=== PATIENT | male | born 1995 | race Caucasian/White ===

== ENCOUNTER 2017-09-09 15:52 | Inpatient (IN) | payer OTHER ==
[~2017-09-09] VITALS: Ht 188 cm; Wt 75.6 kg
[2017-09-09] MEDS ORDERED: SODIUM CHLORIDE 0.9% 500ML 500 ML IV STA (16:08)
--- NOTE | 2017-09-09 16:18 | EMERGENCY ROOM VISIT NOTE ---
History Report prepared by Duc: Elias Hatfield Under the Supervision of: Dr. Guille Kingsley M.D. First contact with patient: 16:02 Chief Complaint: SWELLING TO EXTREMITY Stated Complaint: SWELLING IN ABD AND GROIN History of Present Illness The patient is a 22 year old male who presents to the Emergency Room with complaints of worsening swelling and bloating in his abdominal area that began this morning. Patient has associated symptoms of swelling in his scrotum, testicles, and upper groin area. He adds that he has vomited once since the onset of the symptoms. He states he has no associated urinary or bowel issues. He denies having any previous trauma to the area, fevers, or chills. He denies a history of similar symptoms. He adds that eating does not worsen his symptoms. Patient states he went to Urgent Care prior to arrival and was referred to the ED. He denies any medication allergies. He states he is a student at [employer]. He adds that he drank alcohol last night but that he did not go to bed sick. He denies any other health problems. He states he has no history of liver or kidney problems. Pertinent family medical history includes an extensive cardiac history on his father's side. Source of History: patient Onset: This morning Position: abdomen Timing: worsening Associated Symptoms: + vomiting, No fevers, No chills, No urinary symptoms Note: Patient has swelling in his scrotum, testicles, and upper groin area. Review of Systems See HPI for pertinent positives & negatives. A total of 10 systems reviewed and were otherwise negative. Past Medical & Surgical Medical Problems: (1) Acute pelvic inflammatory disease No pertinent past medical history. Family History Cardiac disorder in father Social History Smoking Status: Never Smoker Occupation Status: [employer] student Current/Historical Medications No Active Prescriptions or Reported Meds Allergies Coded Allergies: No Known Allergies (Unverified , 09/09/17) Physical Exam Vital Signs Date Time Temp Pulse Resp B/P (MAP) Pulse Ox O2 Delivery O2 Flow Rate FiO2 09/09/17 22:28 70 16 122/66 98 Room Air 09/09/17 21:00 78 16 146/64 98 Room Air 09/09/17 19:13 77 20 148/77 98 Room Air 09/09/17 17:46 82 152/78 99 Room Air 09/09/17 15:58 36.7 81 20 98/66 96 Room Air Physical Exam GENERAL: Patient is in no acute distress. HEENT: No acute trauma, normocephalic atraumatic, mucous membranes moist, no nasal congestion, no scleral icterus. NECK: No stridor, no adenopathy, no meningismus, trachea is midline. LUNGS: Clear to auscultation bilaterally, no wheeze, no rhonchi, breath sounds equal. HEART: Without murmurs gallops or rubs, regular rate and rhythm. ABDOMEN: Soft, nontender, bowel sounds positive, no hernias, no peritonitis. GROIN: Edema to the lower pelvis soft tissue which extends down into the scrotum. Mild erythema to scrotum and scrotum sack. No tenderness or evidence of a hernia. Penis and penis shaft are unaffected. EXTREMITIES: No cyanosis or edema, full range of motion of all the joints without pain or difficulty, no signs for acute trauma. NEUROLOGIC: Oriented x 3, no acute motor or sensory deficits, no focal weakness. SKIN: No rash, no jaundice, no diaphoresis. Medical Decision & Procedures ER Provider Diagnostic Interpretation: Radiology results as stated below per my review and radiologist interpretation: TESTICULAR) SCROTUM-CONT HISTORY: Pain. Edema. swollen testicles COMPARISON: None. FINDINGS: Right testis: Maximum dimension 4.8 cm. Uniform internal architecture. Normal epididymis. Normal vascular flow. Left testis: Maximum dimension 4.8 cm. Normal vascular flow. Normal epididymis. Nonspecific scrotal wall edema. IMPRESSION: 1. Normal Ultrasound testis. 2. Moderate scrotal wall edema bilaterally. The above report was generated using voice recognition software. It may contain grammatical, syntax or spelling errors. Electronically signed by: Maged Encarnacion M.D. 09/09/2017 5:25 PM ABD/PELVIS IV AND ORAL CONT CT DOSE: 294.59 mGy.cm HISTORY: Pain poss bladder rupture--swollen pelvis and testicles TECHNIQUE: Multiaxial CT images of the abdomen and pelvis were performed following the use of intravenous and oral contrast. A dose lowering technique was utilized adhering to the principles of ALARA. COMPARISON STUDY: None. FINDINGS: Lung bases are clear. Liver enhances uniformly. Spleen is uniform. Pancreas is unremarkable. Kidneys negative for hydronephrosis. There is mild amount of perinephric as well as Paracolic gutter infiltrative and/or surrounding fluid-type change. The bowel pattern is nonobstructive but is consistent with that of a nonobstructive reactive ileus. There is no evidence for fracture luminal air. There is a moderate amount of free fluid within the pelvis. Origin is unclear. The proximal aspect of the appendix is identified of the tip is now well seen. There is edematous change at the level of the inguinal canals. The edematous change of the scrotum is most likely related to the complex fluid present. A well-defined drainable abscess or collection is not appreciated. IMPRESSION: 1. Nonspecific fluid/infiltrative change within the pelvis considered to be higher density than the simple fluid within the bladder. 2. Origin is unclear, although the possibility of reactive fluid secondary to a pelvic inflammatory process, versus fluid from a nonvisualized perforation must be considered. 3. A pelvic peritonitis type process is not excluded. 4. The bulk of the appendix appears to be normal although the extreme tip of the appendix is not confirmed diagnostically. 5. Generalized infiltrative changes of the inferior rectus regions and anterior pelvic wall/inguinal regions are noted. 6. This infiltrative process most likely also involves the scrotal wall, as was noted on the patient's prior scrotal ultrasound. The above report was generated using voice recognition software. It may contain grammatical, syntax or spelling errors. Electronically signed by: Maged Encarnacion M.D. 09/09/2017 8:12 PM Laboratory Results 09/09/17 16:25 Red Blood Count 5.53, Mean Corpuscular Volume 96.0, Mean Corpuscular Hemoglobin 34.2, Mean Corpuscular Hemoglobin Concent 35.6, Mean Platelet Volume 9.9, Neutrophils (%) (Auto) 73.7, Lymphocytes (%) (Auto) 17.7, Monocytes (%) (Auto) 8.0, Eosinophils (%) (Auto) 0.2, Basophils (%) (Auto) 0.1, Neutrophils # (Auto) 8.96, Lymphocytes # (Auto) 2.15, Monocytes # (Auto) 0.97, Eosinophils # (Auto) 0.02, Basophils # (Auto) 0.01 09/09/17 16:25 Test 09/09/17 16:25 White Blood Count 12.15 K/uL (4.8-10.8) Red Blood Count 5.53 M/uL (4.7-6.1) Hemoglobin 18.9 g/dL (14.0-18.0) Hematocrit 53.1 % (42-52) Mean Corpuscular Volume 96.0 fL (80-100) Mean Corpuscular Hemoglobin 34.2 pg (25-34) Mean Corpuscular Hemoglobin Concent 35.6 g/dl (32-36) Platelet Count 206 K/uL (130-400) Mean Platelet Volume 9.9 fL (7.4-10.4) Neutrophils (%) (Auto) 73.7 % Lymphocytes (%) (Auto) 17.7 % Monocytes (%) (Auto) 8.0 % Eosinophils (%) (Auto) 0.2 % Basophils (%) (Auto) 0.1 % Neutrophils # (Auto) 8.96 K/uL (1.4-6.5) Lymphocytes # (Auto) 2.15 K/uL (1.2-3.4) Monocytes # (Auto) 0.97 K/uL (0.11-0.59) Eosinophils # (Auto) 0.02 K/uL (0-0.5) Basophils # (Auto) 0.01 K/uL (0-0.2) RDW Standard Deviation 42.4 fL (36.4-46.3) RDW Coefficient of Variation 12.2 % (11.5-14.5) Immature Granulocyte % (Auto) 0.3 % Immature Granulocyte # (Auto) 0.04 K/uL (0.00-0.02) Prothrombin Time 11.2 SECONDS (9.0-12.0) Prothromb Time International Ratio 1.1 (0.9-1.1) Activated Partial Thromboplast Time 22.6 SECONDS (21.0-31.0) Partial Thromboplastin Ratio 0.9 Urine Color DK YELLOW Urine Appearance CLEAR (CLEAR) Urine pH 5.5 (4.5-7.5) Urine Specific Somis 1.031 (1.000-1.030) Urine Protein NEG (NEG) Urine Glucose (UA) NEG (NEG) Urine Ketones TRACE (NEG) Urine Occult Blood TRACE (NEG) Urine Nitrite NEG (NEG) Urine Bilirubin NEG (NEG) Urine Urobilinogen NEG (NEG) Urine Leukocyte Esterase NEG (NEG) Urine WBC (Auto) 1-5 /hpf (0-5) Urine RBC (Auto) 0-4 /hpf (0-4) Urine Hyaline Casts (Auto) 1-5 /lpf (0-5) Urine Epithelial Cells (Auto) 5-10 /lpf (0-5) Urine Bacteria (Auto) NEG (NEG) Anion Gap 7.0 mmol/L (3-11) Est Creatinine Clear Calc Drug Dose 131.8 ml/min Estimated GFR () 132.9 Estimated GFR (Non- 114.6 BUN/Creatinine Ratio 13.4 (10-20) Calcium Level 9.8 mg/dl (8.5-10.1) Total Bilirubin 2.0 mg/dl (0.2-1) Aspartate Amino Transf (AST/SGOT) 564 U/L (15-37) Alanine Aminotransferase (ALT/SGPT) 244 U/L (12-78) Alkaline Phosphatase 76 U/L (45-117) Total Protein 7.9 gm/dl (6.4-8.2) Albumin 4.6 gm/dl (3.4-5.0) Globulin 3.3 gm/dl (2.5-4.0) Albumin/Globulin Ratio 1.4 (0.9-2) Thyroid Stimulating Hormone (TSH) 1.830 uIu/ml (0.300-4.500) Hepatitis B Surface Antigen NEG (NEG) Hepatitis C Antibody NEG (NEG) Monoscreen NEG (NEG) Laboratory results reviewed by me. Medications Administered Medications (Trade) Dose Ordered Sig/Malinda Route Start Time Stop Time Status Last Admin Dose Admin Sodium Chloride 500 ml @ 999 mls/hr Q31M STAT IV 09/09/17 16:08 09/09/17 16:38 DC 09/09/17 16:08 999 MLS/HR Cefepime HCl 2000 mg/Dextrose 112.5 ml @ 200 mls/hr ONE STAT IV 09/09/17 20:31 09/09/17 21:04 DC 09/09/17 21:33 200 MLS/HR ED Course 1605: The patient was evaluated in room A2. A complete history and physical exam was performed. 1608: Sodium Chloride 500 ml @ 999 mls/hr IV 2000: Ioversol 116ml IV 2030: Cefepime HCl 2000mg/Dextrose 112.5ml @ 200 mls/hr IV 2: I reassessed the patient and updated him on his results. 2049: Upon reexamination the patient will be further evaluated. I discussed results and treatment plan with the patient. He verbalizes agreement and understanding. I spoke with Dr. Brito of the [facility]. We discussed the patient's results and findings. The patient will be evaluated by Dr. Brito for further management. Medical Decision Differential Diagnosis: Trauma, bladder or urethral injury, renal failure, fluid overload, UTI, electrolyte abnormality, and infection There is a mild leukocytosis which could be consistent with infection or the stress of the situation. No anemia. No significant electrolyte abnormality or kidney failure. There are some elevations to the liver enzymes, the etiology for this finding is unclear. [place] testing is negative. Hepatitis testing so far is negative. Urinalysis does not show infection or significant hematuria. Testicular ultrasound shows normal testicles. There was scrotal edema seen. Abdominal and pelvis CT shows potential pelvic inflammation/infection. No abscess seen. The appendix appeared healthy. The patient presents with pelvis and scrotal swelling. The etiology is unclear. I am concerned about the possibility of infection given the white count elevation and the findings on CT. I discussed the case with the on-call surgeon, I talked with the on-call urologist. IV antibiotics for now was all that was recommended. No acute surgical or urologic intervention needed. I did speak to the patient and the mother. I spoke with case management. The on- call hospitalist was consulted. The patient did receive IV saline, he was given IV cefepime as antibiotic coverage. Medication Reconcilliation Current Medication List: was personally reviewed by me Blood Pressure Screening Patient's blood pressure: Elevated blood pressure Blood pressure disposition: Elevated BP felt to be situational Consults Time Called: 2027 Consulting Physician: Dr. Naveen Osullivan [facility] Returned Call: [address] Hodge who stated he did not believe any surgical procedure was necessary right now. He recommended the patient stay in the hospital and be given IV antibiotics. Additional Consults: Time Called: 2039 Consulted Physician: Dr. Alisha Osullivan [facility] Returned Call: 2040 Additional Comments: Discussed the patient's case. The patient will be evaluated for further management. Time Called: 2042 Consulted Physician: Dr. Jc Osullivan [facility] Returned Call: 2047 Additional Comments: Discussed the patient's case. The patient will be evaluated for further management. Impression Primary Impression: Pelvic pain Additional Impressions: Scrotal edema Leukocytosis Scribe Attestation The scribe's documentation has been prepared under my direction and personally reviewed by me in its entirety. I confirm that the note above accurately reflects all work, treatment, procedures, and medical decision making performed by me. Departure Information Dispostion Being Evaluated By Hospitalist Prescriptions No Active Prescriptions or Reported Meds Forms HOME CARE DOCUMENTATION FORM, IMPORTANT VISIT INFORMATION, WORK / SCHOOL INSTRUCTIONS Patient Instructions My [facility] Health Problem Qualifiers
[2017-09-09 16:44] LABS: BASO % 0.1 %; BASO ABS # 0.01 K/uL (0-0.2); EOS % 0.2 %; EOS ABS # 0.02 K/uL (0-0.5); HEMATOCRIT 53.1 % (42-52); HEMOGLOBIN 18.9 g/dL (14.0-18.0); IG# 0.04 K/uL (0.00-0.02); LYMPH % 17.7 %; LYMPH ABS # 2.15 K/uL (1.2-3.4); MEAN CORPUSCULAR HEMOGLOBIN 34.2 pg (25-34); MEAN CORPUSCULAR HGB CONC 35.6 g/dl (32-36); MEAN PLATELET VOLUME 9.9 fL (7.4-10.4); MONO ABS # 0.97 K/uL (0.11-0.59); NEUT % 73.7 %; NEUT ABS # 8.96 K/uL (1.4-6.5); PLATELET COUNT 206 K/uL (130-400); RED CELL DISTRIBUTION WIDTH CV 12.2 % (11.5-14.5); RED CELL DISTRIBUTION WIDTH SD 42.4 fL (36.4-46.3); WHITE BLOOD COUNT 12.15 K/uL (4.8-10.8)
[2017-09-09 17:02] LABS: ALBUMIN 4.6 gm/dl (3.4-5.0); CALCIUM 9.8 mg/dl (8.5-10.1); CREATININE 0.94 mg/dl (0.60-1.40); POTASSIUM 4.1 mmol/L (3.5-5.1)
[2017-09-09 17:11] LABS: INR 1.1 (0.9-1.1); PTT PATIENT 22.6 SECONDS (21.0-31.0)
[2017-09-09 17:13] LABS: TOTAL PROTEIN 7.9 gm/dl (6.4-8.2)
--- NOTE | 2017-09-09 17:27 | DIAGNOSTIC IMAGING REPORT ---
(TESTICULAR) SCROTUM-CONT HISTORY: Pain. Edema. swollen testicles COMPARISON: None. FINDINGS: Right testis: Maximum dimension 4.8 cm. Uniform internal architecture. Normal epididymis. Normal vascular flow. Left testis: Maximum dimension 4.8 cm. Normal vascular flow. Normal epididymis. Nonspecific scrotal wall edema. IMPRESSION: 1. Normal Ultrasound testis. 2. Moderate scrotal wall edema bilaterally. The above report was generated using voice recognition software. It may contain grammatical, syntax or spelling errors. Electronically signed by: Maged Encarnacion M.D. 09/09/2017 5:25 PM Dictated Date/Time: 09/09/2017 5:25 PM
[2017-09-09] MEDS ORDERED: OPTIRAY 320 IV PRN (20:00)
[2017-09-09 20:12] LABS: HEP C IGG 13 YRS+OLDER_RFLX NEG (NEG)
--- NOTE | 2017-09-09 20:13 | DIAGNOSTIC IMAGING REPORT ---
ABD/PELVIS IV AND ORAL CONT CT DOSE: 294.59 mGy.cm HISTORY: Pain poss bladder rupture--swollen pelvis and testicles TECHNIQUE: Multiaxial CT images of the abdomen and pelvis were performed following the use of intravenous and oral contrast. A dose lowering technique was utilized adhering to the principles of ALARA. COMPARISON STUDY: None. FINDINGS: Lung bases are clear. Liver enhances uniformly. Spleen is uniform. Pancreas is unremarkable. Kidneys negative for hydronephrosis. There is mild amount of perinephric as well as Paracolic gutter infiltrative and/or surrounding fluid-type change. The bowel pattern is nonobstructive but is consistent with that of a nonobstructive reactive ileus. There is no evidence for fracture luminal air. There is a moderate amount of free fluid within the pelvis. Origin is unclear. The proximal aspect of the appendix is identified of the tip is now well seen. There is edematous change at the level of the inguinal canals. The edematous change of the scrotum is most likely related to the complex fluid present. A well-defined drainable abscess or collection is not appreciated. IMPRESSION: 1. Nonspecific fluid/infiltrative change within the pelvis considered to be higher density than the simple fluid within the bladder. 2. Origin is unclear, although the possibility of reactive fluid secondary to a pelvic inflammatory process, versus fluid from a nonvisualized perforation must be considered. 3. A pelvic peritonitis type process is not excluded. 4. The bulk of the appendix appears to be normal although the extreme tip of the appendix is not confirmed diagnostically. 5. Generalized infiltrative changes of the inferior rectus regions and anterior pelvic wall/inguinal regions are noted. 6. This infiltrative process most likely also involves the scrotal wall, as was noted on the patient's prior scrotal ultrasound. The above report was generated using voice recognition software. It may contain grammatical, syntax or spelling errors. Electronically signed by: Maged Encarnacion M.D. 09/09/2017 8:12 PM Dictated Date/Time: 09/09/2017 8:01 PM
[2017-09-09] MEDS ORDERED: CEFEPIME IV 2,000 MG in DEXTROSE 5% 100ML 100 ML IV STA (20:31)
--- NOTE | 2017-09-09 22:06 | History and Physical ---
History & Physical Date & Time of Service: Sep 09, 2017 at 22:05 Chief Complaint: Swelling In Abd And Groin Primary Care Physician: [facility] History of Present Illness Source: patient, hospital records Patient woke up this morning and noted abdominal swelling. He had vomited (no hematemesis) earlier in the morning, secondary to alcohol consumption the night prior, but denied nausea upon waking or further episodes of vomiting. He was not experiencing any abdominal pain. No changes in bowel habits, has last BM around 2pm was normal without blood, He was able to tolerate breakfast without acute worsening of bloating, but did note progressively worsening bloating through out the day. Around mid day, he noticed scrotal and mons pubis swelling to over double his baseline size. Again, he did not experience pain with this. He denies UTI symptoms, abnormal discharge, or genital rashes. He does not recall any recent abdominal or genital trauma. Though he had unprotected sexual encounter with a previous partner on Monday, he did not engage in any sexual interactions since. He states he is heterosexual and has no history of STIs. No fevers, chills, sweats. No CP or SOB. No pain with ambulation, walking, stairs. No recent travel. No previous similar symptoms. No personal or family history of liver, kidney or colon issues. Past Medical/Surgical History No chronic health issues Family History Cardiac disorder in father Father had acute [place] and CABG in his 50s Social History Smoking Status: Never Smoker Smokeless Tobacco Use: No Alcohol Use: Beer daily after class Drug Use: marijuana (2 joints weekly) Marital Status: single Housing status: lives with roommate Occupational Status: [employer] student Immunizations History of Influenza Vaccine: No History of Tetanus Vaccine?: Yes History of Pneumococcal: No History of Hepatitis B Vaccine: Yes Multi-Drug Resistant Organisms History of MDRO: No Allergies Coded Allergies: No Known Allergies (Unverified , 09/09/17) Home Medications No Active Prescriptions or Reported Meds Review of Systems ROS is unremarkable except as noted above. Physical Exam Vital Signs Date Time Temp Pulse Resp B/P (MAP) Pulse Ox O2 Delivery O2 Flow Rate FiO2 09/09/17 21:00 78 16 146/64 98 Room Air 09/09/17 19:13 77 20 148/77 98 Room Air 09/09/17 17:46 82 152/78 99 Room Air 09/09/17 15:58 36.7 81 20 98/66 96 Room Air General Appearance: WD/WN, no apparent distress Head: normocephalic, atraumatic Eyes: normal inspection ENT: hearing grossly normal, pharynx normal Neck: supple, no adenopathy Respiratory/Chest: lungs clear, normal breath sounds, no respiratory distress, no accessory muscle use Cardiovascular: regular rate, rhythm, no murmur, normal peripheral pulses Abdomen/GI: normal bowel sounds, soft, + tenderness (RLQ), + distended ( minimally), + pertinent finding (positive psoas sign) Genitourinary - Male: normal phallus, normal testicles, + pertinent finding ( scrotal edema and erythema of skin. ) Back: normal inspection, no CVA tenderness Extremities/Musculoskelatal: no calf tenderness, no pedal edema Neurologic/Psych: alert, normal mood/affect, oriented x 3 Skin: normal color, + pertinent finding (patchy erythema over abdomen and scrotum. Not excessively hot to touch. Not well demarcated.) Lymphatic: no adenopathy Diagnostics Laboratory Results Results Past 24 Hours Test 09/09/17 16:25 Range/Units White Blood Count 12.15 4.8-10.8 K/uL Red Blood Count 5.53 4.7-6.1 M/uL Hemoglobin 18.9 14.0-18.0 g/dL Hematocrit 53.1 42-52 % Mean Corpuscular Volume 96.0 80-100 fL Mean Corpuscular Hemoglobin 34.2 25-34 pg Mean Corpuscular Hemoglobin Concent 35.6 32-36 g/dl Platelet Count 206 130-400 K/uL Mean Platelet Volume 9.9 7.4-10.4 fL Neutrophils (%) (Auto) 73.7 % Lymphocytes (%) (Auto) 17.7 % Monocytes (%) (Auto) 8.0 % Eosinophils (%) (Auto) 0.2 % Basophils (%) (Auto) 0.1 % Neutrophils # (Auto) 8.96 1.4-6.5 K/uL Lymphocytes # (Auto) 2.15 1.2-3.4 K/uL Monocytes # (Auto) 0.97 0.11-0.59 K/uL Eosinophils # (Auto) 0.02 0-0.5 K/uL Basophils # (Auto) 0.01 0-0.2 K/uL RDW Standard Deviation 42.4 36.4-46.3 fL RDW Coefficient of Variation 12.2 11.5-14.5 % Immature Granulocyte % (Auto) 0.3 % Immature Granulocyte # (Auto) 0.04 0.00-0.02 K/uL Prothrombin Time 11.2 9.0-12.0 SECONDS Prothromb Time International Ratio 1.1 0.9-1.1 Activated Partial Thromboplast Time 22.6 21.0-31.0 SECONDS Partial Thromboplastin Ratio 0.9 Urine Color DK YELLOW Urine Appearance CLEAR CLEAR Urine pH 5.5 4.5-7.5 Urine Specific [place] 1.031 1.000-1.030 Urine Protein NEG NEG Urine Glucose (UA) NEG NEG Urine Ketones TRACE NEG Urine Occult Blood TRACE NEG Urine Nitrite NEG NEG Urine Bilirubin NEG NEG Urine Urobilinogen NEG NEG Urine Leukocyte Esterase NEG NEG Urine WBC (Auto) 1-5 0-5 /hpf Urine RBC (Auto) 0-4 0-4 /hpf Urine Hyaline Casts (Auto) 1-5 0-5 /lpf Urine Epithelial Cells (Auto) 5-10 0-5 /lpf Urine Bacteria (Auto) NEG NEG Sodium Level 138 136-145 mmol/L Potassium Level 4.1 3.5-5.1 mmol/L Chloride Level 101 98-107 mmol/L Carbon Dioxide Level 30 21-32 mmol/L Anion Gap 7.0 3-11 mmol/L Blood Urea Nitrogen 13 7-18 mg/dl Creatinine 0.94 0.60-1.40 mg/dl Est Creatinine Clear Calc Drug Dose 131.8 ml/min Estimated GFR () 132.9 Estimated GFR (Non- 114.6 BUN/Creatinine Ratio 13.4 10-20 Random Glucose 87 70-99 mg/dl Calcium Level 9.8 8.5-10.1 mg/dl Total Bilirubin 2.0 0.2-1 mg/dl Aspartate Amino Transf (AST/SGOT) 564 15-37 U/L Alanine Aminotransferase (ALT/SGPT) 244 12-78 U/L Alkaline Phosphatase 76 45-117 U/L Total Protein 7.9 6.4-8.2 gm/dl Albumin 4.6 3.4-5.0 gm/dl Globulin 3.3 2.5-4.0 gm/dl Albumin/Globulin Ratio 1.4 0.9-2 Thyroid Stimulating Hormone (TSH) 1.830 0.300-4.500 uIu/ml Hepatitis B Surface Antigen NEG NEG Hepatitis C Antibody NEG NEG Monoscreen NEG NEG Diagnostic Radiology ABD/PELVIS IV AND ORAL CONT CT DOSE: 294.59 mGy.cm HISTORY: Pain poss bladder rupture--swollen pelvis and testicles TECHNIQUE: Multiaxial CT images of the abdomen and pelvis were performed following the use of intravenous and oral contrast. A dose lowering technique was utilized adhering to the principles of ALARA. COMPARISON STUDY: None. FINDINGS: Lung bases are clear. Liver enhances uniformly. Spleen is uniform. Pancreas is unremarkable. Kidneys negative for hydronephrosis. There is mild amount of perinephric as well as Paracolic gutter infiltrative and/or surrounding fluid-type change. The bowel pattern is nonobstructive but is consistent with that of a nonobstructive reactive ileus. There is no evidence for fracture luminal air. There is a moderate amount of free fluid within the pelvis. Origin is unclear. The proximal aspect of the appendix is identified of the tip is now well seen. There is edematous change at the level of the inguinal canals. The edematous change of the scrotum is most likely related to the complex fluid present. A well-defined drainable abscess or collection is not appreciated. IMPRESSION: 1. Nonspecific fluid/infiltrative change within the pelvis considered to be higher density than the simple fluid within the bladder. 2. Origin is unclear, although the possibility of reactive fluid secondary to a pelvic inflammatory process, versus fluid from a nonvisualized perforation must be considered. 3. A pelvic peritonitis type process is not excluded. 4. The bulk of the appendix appears to be normal although the extreme tip of the appendix is not confirmed diagnostically. 5. Generalized infiltrative changes of the inferior rectus regions and anterior pelvic wall/inguinal regions are noted. 6. This infiltrative process most likely also involves the scrotal wall, as was noted on the patient's prior scrotal ultrasound. (TESTICULAR) SCROTUM-CONT HISTORY: Pain. Edema. swollen testicles COMPARISON: None. FINDINGS: Right testis: Maximum dimension 4.8 cm. Uniform internal architecture. Normal epididymis. Normal vascular flow. Left testis: Maximum dimension 4.8 cm. Normal vascular flow. Normal epididymis. Nonspecific scrotal wall edema. IMPRESSION: 1. Normal Ultrasound testis. 2. Moderate scrotal wall edema bilaterally. Impression Assessment and Plan 22 year old male with no chronic medical conditions admitted with abdominal bloating/scrotal swelling and pelvic inflammatory/infiltrative changes as noted on CT. Fluid/infiltrative change within the pelvis - etiology unknown - IV abx: cefepime and flagyl - May consider consulting GI if symptoms persist Polycythemia - Trend CBC Elevated LFTs - Advised for abstained/decreased alcohol intake - Hep panel ordered and pending - U/S mesenteric + duplex portal hepatic to assess for venous thromboses that may cause thromboses/explain edema - Trend LFTs - If remain deranged, may consider liver U/S VTE PPx - SCDs FULL CODE Attending addendum: I have physically seen this patient, have supervised the medical residents activities, and agree with the H&P unless as otherwise noted. Assessment and Plan: Fluid and infiltrative changes in the pelvis/scrotal wall edema-- Etiology unknown this time Considerations include infectious/inflammatory/circulatory. Empirically placed on cefepime and Flagyl IV Due to polycythemia order mesenteric ultrasound/Doppler Order C1 esterase inhibitor for possible angioedema Has been seen by urology in the ED We'll likely consult GI Abnormal LFTs-- Imaging does not suggest a potential progressive process such as hepatomegaly, Szymanski, cirrhosis etc. Acute hepatitis panel pending Repeat laboratories in a.m. May just be associated to temporary toxicity from alcohol use... Patient counseled Mesenteric Dopplers as noted above Consult GI for assessment and follow-up We'll avoid hepatotoxic agents such as acetaminophen Polycythemia-- Hemoglobin 18.9 upon admission May be an element of hemoconcentration If still elevated in the a.m., should consider peripheral smear, vitamin B12, Job 2 mutation and complete workup. Level of Care Med/Surg Advanced Directives Existing Advance Directive: No Existing Living Will: No Existing Power of Technology Manager: No Existing Health Care Proxy: No Resuscitation Status FULL RESUSCITATION VTE Prophylaxis VTE Risk Assessment Done? Y/N: Yes Risk Level: Moderate Given or contraindicated: SCD's Note Total Time: Critical Care 30 - 74 minutes Resident Tracking Resident Involvement: Resident Care Provided Care Provided: Adult Hospital Medicine
[2017-09-09] MEDS ORDERED: MAGNESIUM HYDROXIDE SUSP 30 ML UDC PO PRN (23:15)
[2017-09-09] MEDS ORDERED: ONDANSETRON INJ 2 MG/ML 2 ML VIAL IV PRN (23:15)
[2017-09-09] MEDS ORDERED: ACETAMINOPHEN 325 MG TAB PO PRN (23:15)
[2017-09-09] MEDS ORDERED: CEFEPIME IV 1,000 MG in DEXTROSE 5% 100ML 100 ML IV SCH (23:15)
[2017-09-09] MEDS ORDERED: ALUMINUM/MAGNESIUM/SIMETH (MAALOX MAX) 30 ML UDC PO PRN (23:15)
[2017-09-09] MEDS ORDERED: POLYETHYLENE (MIRALAX) 17 GM PACK PO PRN (23:15)
[2017-09-09 23:44] VITALS: O2SAT 98
[2017-09-10 00:30] VITALS: Ht 188 cm; Wt 75.6 kg
[2017-09-10 00:34] VITALS: BP 132/80; PULSE 64; TEMP 36.5; O2SAT 95
[2017-09-10] MEDS: METRONIDAZOLE / NSS 500 MG in PREMIXED NSS 100 ML IV SCH ×3 (02:37→18:13)
[2017-09-10] MEDS ORDERED: INFLUENZA ADMINISTRATION CHARGE ONE (04:45)
[2017-09-10] MEDS ORDERED: INFLUENZA VIRUS QUAD VACCINE 0.5 ML SYR IM. ONE (04:45)
[2017-09-10] MEDS: CEFEPIME IV 1,000 MG in SYRINGE 0 ML IV SCH ×3 (06:06→21:54)
[2017-09-10 06:57] VITALS: BP 124/67; PULSE 59; TEMP 36.6; O2SAT 97
[2017-09-10 07:52] LABS: ALBUMIN 3.6 gm/dl (3.4-5.0); CALCIUM 8.5 mg/dl (8.5-10.1); CREATININE 0.85 mg/dl (0.60-1.40); POTASSIUM 3.8 mmol/L (3.5-5.1); TOTAL PROTEIN 5.9 gm/dl (6.4-8.2)
[2017-09-10 08:10] LABS: BASO % 0.2 %; BASO ABS # 0.02 K/uL (0-0.2); EOS % 0.8 %; EOS ABS # 0.07 K/uL (0-0.5); HEMATOCRIT 43.2 % (42-52); HEMOGLOBIN 15.3 g/dL (14.0-18.0); IG# 0.02 K/uL (0.00-0.02); LYMPH % 28.7 %; LYMPH ABS # 2.39 K/uL (1.2-3.4); MEAN CELL VOLUME 96.2 fL (80-100); MEAN CORPUSCULAR HEMOGLOBIN 34.1 pg (25-34); MEAN CORPUSCULAR HGB CONC 35.4 g/dl (32-36); MEAN PLATELET VOLUME 9.8 fL (7.4-10.4); MONO % 9.5 %; MONO ABS # 0.79 K/uL (0.11-0.59); NEUT % 60.6 %; NEUT ABS # 5.03 K/uL (1.4-6.5); PLATELET COUNT 154 K/uL (130-400); RED CELL DISTRIBUTION WIDTH CV 12.2 % (11.5-14.5); RED CELL DISTRIBUTION WIDTH SD 42.4 fL (36.4-46.3); WHITE BLOOD COUNT 8.32 K/uL (4.8-10.8)
--- NOTE | 2017-09-10 11:52 | DIAGNOSTIC IMAGING REPORT ---
DUPLEX PORTAL HEPATIC VEINS CLINICAL HISTORY: abdominopelvic fluid/edema, abnormal LFT COMPARISON STUDY: Abdomen and pelvis CT 09/09/2017. FINDINGS: The portal, splenic, and hepatic veins are patent and demonstrate normal direction of flow. IMPRESSION: The portal and hepatic veins are patent. Electronically signed by: Levon Mata M.D. 09/10/2017 11:51 AM Dictated Date/Time: 09/10/2017 11:50 AM
--- NOTE | 2017-09-10 11:55 | DIAGNOSTIC IMAGING REPORT ---
DUPLEX MESENTERIC ULTRASOUND CLINICAL HISTORY: abdomo pelvic fluid and edema, polycythemia COMPARISON STUDY: Abdomen and pelvis CT 09/09/2017. FINDINGS: The peak systolic velocity within the proximal aorta is 241 cm/s. This likely accounts for the elevated velocities within the proximal superior mesenteric artery and celiac artery of 252 cm segment and 199 cm/s respectively. No stenosis identified on the provided images. The appendix artery demonstrates a normal velocity. The splenic artery was not well visualized IMPRESSION: Elevated peak velocities within the aorta and mesenteric vessels likely due to the patient's hyperdynamic state. Otherwise, no evidence for stenosis of the major mesenteric vessels. Electronically signed by: Levon Mata M.D. 09/10/2017 11:54 AM Dictated Date/Time: 09/10/2017 11:51 AM
[2017-09-10 15:48] VITALS: BP 119/71; PULSE 63; TEMP 36.9; O2SAT 97
--- NOTE | 2017-09-10 16:04 | Family Medicine Progress Note ---
Progress Note Date of Service Sep 10, 2017. Subjective Pt evaluation today including: conversation w/ patient, physical exam, chart review, lab review Pain: denies abdominal or scrotal tenderness PO Intake: tolerating regular diet Voiding: no voiding problems Patient is doing well. Reports less swelling of abdomen and scrotum. Patient reports drinking 1-2 beers per evening and binge drinks 3 evenings a week; 6-10 beers per occasion. Constitutional: No fever, No chills, No sweats Respiratory: No cough, No wheezing, No shortness of breath Cardiovascular: No chest pain, No palpitations Abdomen: No pain, No nausea, No vomiting, No diarrhea Male : No dysuria, No urinary frequency Medications Current Inpatient Medications Medications (Trade) Dose Ordered Sig/Malinda Route Start Time Stop Time Status Last Admin Dose Admin Ioversol (Optiray 320) 116 ml UD PRN IV 09/09/17 20:00 09/13/17 19:59 Acetaminophen (Tylenol Tab) 650 mg Q4H PRN PO 09/09/17 23:15 10/09/17 23:14 Al Hydrox/Mg Hydrox/Simethicone (Maalox Max Susp) 15 ml Q4H PRN PO 09/09/17 23:15 10/09/17 23:14 Magnesium Hydroxide (Milk Of Magnesia Susp) 30 ml Q6H PRN PO 09/09/17 23:15 10/09/17 23:14 Polyethylene (Miralax Powder Packet) 17 gm DAILY PRN PO 09/09/17 23:15 10/09/17 23:14 Ondansetron HCl (Zofran Inj) 4 mg Q6H PRN IV 09/09/17 23:15 10/09/17 23:14 Metronidazole 500 mg/Prmx 100 ml @ 100 mls/hr Q8H IV 09/10/17 02:00 09/20/17 01:59 09/10/17 09:57 100 MLS/HR Cefepime HCl 1000 mg/Syringe 11 ml @ 5.5 mls/min Q8 IV 09/10/17 06:00 09/20/17 05:59 09/10/17 13:35 5.5 MLS/MIN Objective Vital Signs Date Time Temp Pulse Resp B/P (MAP) Pulse Ox O2 Delivery O2 Flow Rate FiO2 1/14/18 07:55 Room Air 09/10/17 06:57 36.6 59 17 124/67 (86) 97 Room Air 09/10/17 00:34 36.5 64 15 132/80 (97) 95 Room Air 09/10/17 00:30 Room Air 09/10/17 00:30 Room Air 09/09/17 23:44 67 18 148/74 98 09/09/17 22:28 70 16 122/66 98 Room Air 09/09/17 21:00 78 16 146/64 98 Room Air 09/09/17 19:13 77 20 148/77 98 Room Air 09/09/17 17:46 82 152/78 99 Room Air Physical Exam General Appearance: WD/WN, no apparent distress Respiratory/Chest: lungs clear, normal breath sounds, no respiratory distress Cardiovascular: regular rate, rhythm, no edema Abdomen: normal bowel sounds, no pulsatile mass, + distended Neurologic/Psychiatric: alert, normal mood/affect, oriented x 3 Skin: normal color, warm/dry, no rash Laboratory Results 09/10/17 06:48 Red Blood Count 4.49, Mean Corpuscular Volume 96.2, Mean Corpuscular Hemoglobin 34.1, Mean Corpuscular Hemoglobin Concent 35.4, Mean Platelet Volume 9.8, Neutrophils (%) (Auto) 60.6, Lymphocytes (%) (Auto) 28.7, Monocytes (%) (Auto) 9.5, Eosinophils (%) (Auto) 0.8, Basophils (%) (Auto) 0.2, Neutrophils # (Auto) 5.03, Lymphocytes # (Auto) 2.39, Monocytes # (Auto) 0.79, Eosinophils # (Auto) 0.07, Basophils # (Auto) 0.02 09/10/17 06:48 Test 09/09/17 16:25 09/10/17 06:48 Prothrombin Time 11.2 SECONDS (9.0-12.0) Prothromb Time International Ratio 1.1 (0.9-1.1) Activated Partial Thromboplast Time 22.6 SECONDS (21.0-31.0) Partial Thromboplastin Ratio 0.9 Urine Color DK YELLOW Urine Appearance CLEAR (CLEAR) Urine pH 5.5 (4.5-7.5) Urine Specific [place] 1.031 (1.000-1.030) Urine Protein NEG (NEG) Urine Glucose (UA) NEG (NEG) Urine Ketones TRACE (NEG) Urine Occult Blood TRACE (NEG) Urine Nitrite NEG (NEG) Urine Bilirubin NEG (NEG) Urine Urobilinogen NEG (NEG) Urine Leukocyte Esterase NEG (NEG) Urine WBC (Auto) 1-5 /hpf (0-5) Urine RBC (Auto) 0-4 /hpf (0-4) Urine Hyaline Casts (Auto) 1-5 /lpf (0-5) Urine Epithelial Cells (Auto) 5-10 /lpf (0-5) Urine Bacteria (Auto) NEG (NEG) Thyroid Stimulating Hormone (TSH) 1.830 uIu/ml (0.300-4.500) Urine Opiates Screen NEG (NEG) Urine Methadone, Qualitative NEG (NEG) Urine Barbiturates NEG (NEG) Urine Phencyclidine (PCP) Level NEG (NEG) Ur Amphetamine/Methamphetamine NEG (NEG) MDMA (Ecstasy) Screen NEG (NEG) Urine Benzodiazepines Screen NEG (NEG) Urine Cocaine Metabolite NEG (NEG) Urine Marijuana (THC) POS (NEG) Hepatitis B Surface Antigen NEG (NEG) Hepatitis C Antibody NEG (NEG) Monoscreen NEG (NEG) White Blood Count 8.32 K/uL (4.8-10.8) Red Blood Count 4.49 M/uL (4.7-6.1) Hemoglobin 15.3 g/dL (14.0-18.0) Hematocrit 43.2 % (42-52) Mean Corpuscular Volume 96.2 fL (80-100) Mean Corpuscular Hemoglobin 34.1 pg (25-34) Mean Corpuscular Hemoglobin Concent 35.4 g/dl (32-36) Platelet Count 154 K/uL (130-400) Mean Platelet Volume 9.8 fL (7.4-10.4) Neutrophils (%) (Auto) 60.6 % Lymphocytes (%) (Auto) 28.7 % Monocytes (%) (Auto) 9.5 % Eosinophils (%) (Auto) 0.8 % Basophils (%) (Auto) 0.2 % Neutrophils # (Auto) 5.03 K/uL (1.4-6.5) Lymphocytes # (Auto) 2.39 K/uL (1.2-3.4) Monocytes # (Auto) 0.79 K/uL (0.11-0.59) Eosinophils # (Auto) 0.07 K/uL (0-0.5) Basophils # (Auto) 0.02 K/uL (0-0.2) RDW Standard Deviation 42.4 fL (36.4-46.3) RDW Coefficient of Variation 12.2 % (11.5-14.5) Immature Granulocyte % (Auto) 0.2 % Immature Granulocyte # (Auto) 0.02 K/uL (0.00-0.02) Anion Gap 4.0 mmol/L (3-11) Est Creatinine Clear Calc Drug Dose 145.8 ml/min Estimated GFR () 143.4 Estimated GFR (Non- 123.7 BUN/Creatinine Ratio 12.8 (10-20) Calcium Level 8.5 mg/dl (8.5-10.1) Phosphorus Level 4.0 mg/dl (2.5-4.9) Magnesium Level 1.8 mg/dl (1.8-2.4) Total Bilirubin 2.9 mg/dl (0.2-1) Aspartate Amino Transf (AST/SGOT) 314 U/L (15-37) Alanine Aminotransferase (ALT/SGPT) 161 U/L (12-78) Alkaline Phosphatase 59 U/L (45-117) Total Protein 5.9 gm/dl (6.4-8.2) Albumin 3.6 gm/dl (3.4-5.0) Globulin 2.3 gm/dl (2.5-4.0) Albumin/Globulin Ratio 1.6 (0.9-2) Assessment and Plan 22 year old male with no chronic medical conditions admitted with abdominal bloating/scrotal swelling and pelvic inflammatory/infiltrative changes as noted on CT. Fluid/infiltrative change within the pelvis - etiology unknown - Patient white count was mildly elevated in the ED, today it is within the norm. Patient has remained afebrile - IV abx: cefepime and flagyl day 1 to cover empirically for infectious causes of ascites - Patient reports that ascites and scrotal swelling has decreased since arrival in the ED. He notices marked difference. - May consider consulting GI if symptoms persist. Patient will benefit from outpatient follow up locally with a primary and GI. - Consider the following workup for causes of liver injury FRANSISCA, AMA, ceruloplasmin, iron panel to exclude hemochromatosis, alpha 1 antitrypsin deficiency - Will order lipase with morning labs tomorrow to rule out pancreatitis Scrotal edema/erythema - cellulitis - improved since admission - continue IV antibiotics. Elevated LFTs, possible alcoholic hepatitis - Advised for abstained/decreased alcohol intake - Hep panel ordered and pending - USG of mesenteric and portal vessels negative for thrombosis - Trend LFTs; halved overnight - MELD and MADDRY scores are negligible for this patient Alcohol abuse - Patient reports drinking one or two beers daily. In addition, the patient reports binge drinking 2-3 nights (6-12 drinks on these occasions) - Patient scored a 0/4 with CAGE questioning. - Discussed with the patient the health risk involved with binge drinking - Patient is a [employer] student from [place], accompanied by mother. Advised to follow up with [facility]. Polycythemia - Trend CBC VTE PPx - SCDs FULL CODE Reviewed: Pt Seen/Exam by Me History no scrotal pain. redness improving. no abdominal pain Constitutional: denies: fever Respiratory: negative: short of breath Cardiovascular: denies chest pain Gastrointestinal/Abdominal: negative: abdominal pain General Appearance: no apparent distress Respiratory: lungs clear, no respiratory distress Cardiovascular: regular rate, rhythm Neurologic/Psychiatric: alert, oriented x 3 Comments scrotum - generalized swelling and erythema on the skin., no tenderness. Assessment/Plan Resident Physician Supervision Note: I independently interviewed and examined the patient and verified the de jesus history and physical, reviewed labs and image studies, discussed the case with the resident Dr. Weiss and agree with the findings and care plan.
--- NOTE | 2017-09-10 18:51 | GENITOURINARY CONSULTATION ---
DATE OF CONSULTATION: 09/10/2017 REASON FOR THE CONSULT: Scrotal edema. HISTORY OF PRESENTATION: The patient is a 22-year-old male who on Monday night had night of heavy drinking. He woke up at 5:00 in the morning and had some dry heaves and finally woke up Monday morning and noticed that there was some swelling in his lower abdomen and some tightness in his scrotum. He was able to eat the rest of the day, but this tightness got worse and at 2:00 he was alarmed, went to an outpatient clinic and was sent to the Emergency Room. In the Emergency Room, the patient did not complain of any pain, just tightness in his abdomen in his suprapubic area consistent with edema as well as his scrotal wall. He denied any testicular pain or flank pain or abdominal pain. He denied any nausea or emesis. CAT scan was performed which did show some stranding or edema of the suprapubic area inside the abdomen and some free fluid in his pelvis. Because of the scrotal edema, a sonogram was performed which showed normal testes with normal flow, but swelling in the scrotal wall. Of note, the patient did have an extremely elevated liver function studies which were the most striking abnormalities of his blood work except for a slightly elevated white blood cell count. He was admitted last night by the hospitalist and I did see him in the Emergency Room and evaluated him briefly there to make sure there were no acute problems and also followed up this morning, where he had improvement of the scrotal edema. Please refer to the Emergency Room review of systems, past medical history. PHYSICAL EXAMINATION: HEENT: Normal. GENERAL: No respiratory distress. CARDIAC: No pedal edema was noted. ABDOMEN: Significant for some suprapubic edema and some fullness in the lower abdomen. GENITALIA: Significant for moderate scrotal edema with some erythema of the scrotal wall, but no tenderness of his testis which were palpable without epididymal swelling or tenderness, also without scrotal mass. RECTAL: Deferred. EXTREMITIES: Unremarkable, specifically no pedal edema was noted. NEUROLOGIC: He is alert and oriented without any focal or sensory deficits. LABORATORY DATA: The previously noted pertinent laboratories were stated. ASSESSMENT: Idiopathic scrotal and lower extremity and pelvic edema with elevated liver function studies after drinking. PLAN: The patient stated clear improvement from night today, I suspect this will completely resolve and the etiology is inconclusive. No need for further followup from urologic point of view, suspect this was a systemic cause for the scrotal edema.
[2017-09-10 23:58] VITALS: BP 107/64; PULSE 59; TEMP 36.4; O2SAT 97
[2017-09-11] MEDS: METRONIDAZOLE / NSS 500 MG in PREMIXED NSS 100 ML IV SCH ×2 (02:13→10:10)
[2017-09-11] MEDS: CEFEPIME IV 1,000 MG in SYRINGE 0 ML IV SCH (06:01)
[2017-09-11 06:17] LABS: BASO % 0.1 %; BASO ABS # 0.01 K/uL (0-0.2); EOS % 0.9 %; EOS ABS # 0.06 K/uL (0-0.5); HEMOGLOBIN 15.2 g/dL (14.0-18.0); IG# 0.02 K/uL (0.00-0.02); LYMPH % 31.4 %; LYMPH ABS # 2.16 K/uL (1.2-3.4); MEAN CELL VOLUME 94.7 fL (80-100); MEAN CORPUSCULAR HEMOGLOBIN 33.5 pg (25-34); MEAN CORPUSCULAR HGB CONC 35.3 g/dl (32-36); MEAN PLATELET VOLUME 9.6 fL (7.4-10.4); MONO % 7.4 %; MONO ABS # 0.51 K/uL (0.11-0.59); NEUT % 59.9 %; NEUT ABS # 4.12 K/uL (1.4-6.5); PLATELET COUNT 144 K/uL (130-400); RED CELL DISTRIBUTION WIDTH CV 12.1 % (11.5-14.5); RED CELL DISTRIBUTION WIDTH SD 41.2 fL (36.4-46.3); WHITE BLOOD COUNT 6.88 K/uL (4.8-10.8)
[2017-09-11 06:51] LABS: ALBUMIN 3.5 gm/dl (3.4-5.0); CALCIUM 8.7 mg/dl (8.5-10.1); CREATININE 0.85 mg/dl (0.60-1.40); POTASSIUM 3.9 mmol/L (3.5-5.1)
[2017-09-11 07:05] LABS: TOTAL PROTEIN 6.1 gm/dl (6.4-8.2)
[2017-09-11 07:28] VITALS: BP 112/68; PULSE 58; TEMP 36.6; O2SAT 98
--- NOTE | 2017-09-11 11:56 | Discharge Instructions ---
Discharge Instructions Date of Service Sep 11, 2017. Admission Reason for Admission: Acute Pelvic Inflammatory, Scrotal Edema Discharge Discharge Diagnosis / Problem: acute pelvic inflammation and scrotal edema Discharge Goals Goal(s): Decrease discomfort, Diagnostic testing, Therapeutic intervention Activity Recommendations Activity Limitations: resume your previous activity . Instructions / Follow-Up Instructions / Follow-Up Mr. Charles you were admitted for abdominal bloating and scrotal swelling. You were found to have pelvic inflammation on CT scan. You were on antibiotics for possible infection which is very unlikely at this point and antibiotics were stopped. You received a thorough evaluation and was also seen by Dr. Greene, a urologist who believes the swelling will likely resolve and the cause is unknown at this time. Your liver function was abnormal as a result of your heavy drinking. We highly advise you to cut back and gradually abstain from alcohol to prevent further major complications. Please follow the following recommendations: -Follow up with Dr. Root at the [place] [id number] [facility] on Wednesday 09/13 -Dr. Root will recheck your liver function test -Please cut back on alcohol use as discussed Current Hospital Diet Patient's current hospital diet: Regular Diet Discharge Diet Recommended Diet: Regular Diet Pending Studies Studies pending at discharge: no Medical Emergencies . Who to Call and When: Medical Emergencies: If at any time you feel your situation is an emergency, please call 911 immediately. . Non-Emergent Contact Non-Emergency issues call your: Primary Care Provider . . "Provider Documentation" section prepared by Wendy Root. . VTE Core Measure Inpt VTE Proph given/why not?: SCD's
[2017-09-11 13:25] VITALS: BP 112/68; PULSE 58; TEMP 36.6; O2SAT 98
--- NOTE | 2017-09-11 14:11 | Discharge Summary ---
Discharge Summary Date of Service Sep 11, 2017. Discharge Summary Admission Date: Sep 09, 2017 at 23:14 Discharge Date: Sep 11, 2017 Discharge Disposition: Home Principal Diagnosis: idiopathic pelvic inflammation and scrotal/abdominal edema Problems/Secondary Diagnoses: acute alcoholic hepatitis Alcohol use disorder Immunizations: Have You Had Influenza Vaccine: No History of Tetanus Vaccine?: Yes History of Pneumococcal: No History of Hepatitis B Vaccine: Yes Procedures: Ultrasound - testicular, abdominal, liver CT - pelvic/abdominal Consultations: Urology Medication Reconciliation Medication Profile: No Active Prescriptions or Reported Meds Discharge Exam Review of Systems: Constitutional: No fever, No chills Respiratory: No shortness of breath Cardiovascular: No chest pain Abdomen: + problem reported (abdominal bloating), No pain, No nausea, No vomiting Genitourinary - Female: + dysuria Genitourinary - Male: + problem reported (scrotal edema and erythema), No dysuria, No penile discharge, No lesions Physical Exam: General Appearance: no apparent distress Eyes: normal inspection, sclerae normal Neck: supple Respiratory/Chest: lungs clear, normal breath sounds Cardiovascular: regular rate, rhythm, no edema, no murmur Abdomen / GI: normal bowel sounds, non tender, soft, + pertinent finding ( scrotal edema and erythema; no scrotal tenderness to touch) Extremities: no calf tenderness, no pedal edema Neurologic/Psychiatric: alert, oriented x 3 Hospital Course 22 year old male with no chronic medical conditions admitted with idiopathic abdominal bloating/scrotal swelling and pelvic inflammatory/infiltrative changes noted on CT. Also with elevated liver function in the setting of alcohol use disorder. Fluid/infiltrative change within the pelvis of unknown etiology - edema/ bloating improving - Remained afebrile; WBC initially 12.15 downtrended to 6.88 this AM - Received IV abx: cefepime and flagyl 2 days to cover empirically for possible infectious causes of ascites - stopped on discharge - Consider GI outpatient consult if not improving Scrotal edema/erythema - improving - improved since admission - Possibly secondary to ascites - Urology consulted - will likely completely resolve; etiology inconclusive likely systemic in nature; no f/u needed Elevated LFTs, possible alcoholic hepatitis - Advised to abstain/decrease alcohol intake - Hep panel - neg - USG of mesenteric and portal vessels negative for thrombosis - Trended LFTs - improving - Lipase 94 - MELD and MADDRY scores are negligible for this patient - FOLLOW UP: With Dr. Root on 09/13/17 and repeat LFT within a week from 09/13/17 Alcohol abuse - Patient reported drinking one or two beers daily and binge drinking 2-3 nights per week (6-12 drinks per occasion) - Patient scored a 0/4 with CAGE questioning - Discussed with the patient the health risk involved with binge drinking - Patient is a [employer] student from [place] - Will follow up with Dr. Root Polycythemia - resolved - Hgb 15.2 and Hct 43 this AM - Trended CBC VTE PPx - SCDs FULL CODE Total Time Spent: Less than 30 minutes This includes examination of the patient, discharge planning, medication reconciliation, and communication with other providers. Discharge Instructions Please refer to the electronic Patient Visit Report (Discharge Instructions) for additional information. Additional Copies To Wendy Root M.D.; [facility] Resident Involvement: Resident Care Provided Care Provided: Adult [facility] Medicine Reviewed: Pt Seen/Exam by Me History Pt is feeling much improved. He still feels there is slight abd distention noted but nothing compared to prior. He also still notes mild scrotal swelling and redness. No issues with urination. Has been tolerating diet without issue. Agree with HPI/ROS as noted by resident General Appearance: WD/WN, no apparent distress Respiratory: normal breath sounds, no respiratory distress Cardiovascular: normal peripheral pulses, regular rate, rhythm Gastrointestinal: non tender, soft Extremities: non-tender, no pedal edema Neurologic/Psychiatric: alert, normal mood/affect, oriented x 3 Skin Characteristics: normal color, warm/dry Comments : scrotal swelling noted with mild redness, nonTTP Assessment/Plan Agree with plan as outlined above Scrotal swelling of uncertain etiology Seen by urology who feels this is not infectious, although uncertain of etiology d/c abx F/U with urology if return of sx, otherwise they do not feel pt needs further f/ u Elevated LFTs improving and almost WNL, noted in the setting of binge alcohol use Discussed frankly with pt and mother that while there has been no damage noted on Abd/Liver US, that there could be issues with ongoing use f/u LFTs in 1-2 weeks
[2017-09-12 08:56] LABS: HEPATITIS A IGM TC 51813E NON-REACTIVE (NON-REACTIVE); HEPATITIS B CORE IGM TC51854R NON-REACTIVE (NON-REACTIVE)
== END 2017-09-11 14:26 | disposition home or self-care (01) | DRG 728 ==
LOC: C.EDB 15:54 → C.MSN 23:14 → ENRESERV 23:38
PROVIDERS: ADMIT Student in an Organized Health Care Education/Training Program; ATTEND Family Medicine
DX: N49.2 Inflammatory disorders of scrotum (principal); N50.89 Other specified disorders of the male genital organs; R60.0 Localized edema; K70.10 Alcoholic hepatitis without ascites; D75.1 Secondary polycythemia; D72.829 Elevated white blood cell count, unspecified; F10.10 Alcohol abuse, uncomplicated; Z23 Encounter for immunization